=== PATIENT | female | born 1970 | race Caucasian/White ===

== ENCOUNTER 2020-09-28 05:45 | Inpatient (IN) ==
[2020-09-26 11:09] LABS: Bilirubin,Urine Negative (Negative); Blood, Urine Negative (Negative); Glucose,Urine (UA) Negative (Negative); Ketones,Urine Negative (Negative); Nitrite,Urine Negative (Negative); Protein,Urine Negative; RBC,Urine 1 /HPF (0-4); Urine Appearance CLEAR (Clear); Urine Color Straw (Yellow); Urine Specific Gravity 1.008 (1.001-1.035); Urine Urobilinogen < 2.0 EU/DL (0.2-1.0); WBC,Urine <1 /HPF (0-6)
[2020-09-26 11:13] LABS: Basophils # 0.1 10*3/uL (0.0-0.2); Basophils % 0.6 % (0.0-0.8); Eosinophils # 0.1 10*3/uL (0.0-0.87); Eosinophils % 0.5 % (0.00-10.9); Hematocrit 37.5 VOL% (35.7-47.0); Hemoglobin 12.8 GM/DL (12.0-16.0); Immature Granulocytes % 0.2 %; Immature Granulocytes Absolute 0.02 #; Lymphocytes # 2.9 10*3/uL (1.4-4.0); Lymphocytes % 31.7 % (21.3-54.2); Mean Corpuscular HGB Conc 34.1 GM/DL (32-36); Mean Corpuscular Volume 81.9 FL (87-102); Mean Platelet Volume 10.8 FL (9.6-12.0); Monocytes % 10.1 % (1.7-12.7); Neutrophils % 56.9 % (38.7-73.9); Platelet Count 518 T/CUMM (130-400); Red Blood Count 4.58 MC/CUMM (3.8-5.5); Red Cell Distribution Width 16.8 % (9.3-17.3); White Blood Count 9.3 T/CUMM (4-12)
[2020-09-26 11:20] LABS: PT Patient Result 10.9 SECS (9.8-11.9); Partial Thromboplastin Time 28.6 SECS (23.9-33.8)
[2020-09-26 11:24] LABS: Bilirubin,Total 0.5 MG/DL (0.2-1.0); Calcium 8.5 MG/DL (8.5-10.1); Osmolality,Calculated 277.5 MOS/KG (273-304); Potassium 4.2 MMOL/L (3.5-5.1); Total Protein 7.8 G/DL (6.4-8.3)
[2020-09-28] MEDS ORDERED: ceFAZolin 1,000 MG VIAL ONE (05:57)
[2020-09-28] MEDS ORDERED: VANCOMYCIN 1,000 MG VIAL ONE (05:57)
[2020-09-28] MEDS ORDERED: fentaNYL 100 MCG/2 ML VIAL ONE ×2 (06:26→08:35)
[2020-09-28] MEDS ORDERED: TRANEXAMIC ACID 1,000 MG/10 ML VIAL ONE (06:27)
[2020-09-28] MEDS ORDERED: MIDAZOLAM 2 MG/2 ML VIAL ONE (06:27)
[2020-09-28] MEDS ORDERED: ROPIVACAINE 0.5% 30 ML VIAL ONE (06:30)
[2020-09-28] MEDS ORDERED: DEXAMETHASONE 4 MG/1 ML VIAL ONE ×2 (06:30→07:50)
[2020-09-28] MEDS ORDERED: BACITRACIN OINT 0.9 GM PACK TOP ONE (06:44)
[2020-09-28] MEDS ORDERED: LIDOCAINE 2% 5 ML VIAL ONE (07:25)
[2020-09-28] MEDS ORDERED: ROCURONIUM 50 MG/5 ML VIAL IV ONE (07:25)
[2020-09-28] MEDS: LACTATED RINGERS 1,000 ML IV SCH ×4 (07:25→20:19)
[2020-09-28] MEDS ORDERED: propofoL 200 MG/20 ML VIAL IV ONE (07:25)
[2020-09-28] MEDS ORDERED: ePHEDrine 50 MG/ML VIAL ONE (07:36)
[2020-09-28] MEDS ORDERED: PHENYLEPHRINE 1 MG/10 ML SYRINGE IV ONE (07:49)
[2020-09-28] MEDS ORDERED: ONDANSETRON 4 MG/2 ML VIAL ONE (07:50)
[2020-09-28] MEDS ORDERED: PHENYLEPHRINE 10 MG/1 ML VIAL IV ONE (08:14)
[2020-09-28] MEDS ORDERED: SODIUM CHLORIDE 0.9% 250 ML IV ONE (08:16)
[2020-09-28] MEDS ORDERED: SODIUM CHLORIDE 0.9% 100 ML IV ONE (08:16)
[2020-09-28] MEDS ORDERED: GLYCOPYRROLATE 0.4 MG/2 ML VIAL ONE ×2 (08:46→08:55)
[2020-09-28] MEDS ORDERED: NEOSTIGMINE 10 MG/10 ML VIAL ONE (08:55)
[2020-09-28] MEDS ORDERED: MAGNESIUM HYDROXIDE SUSP 30 ML UDCUP PO PRN (09:16)
[2020-09-28] MEDS ORDERED: ZALEPLON 5 MG CAPSULE PO PRN (09:16)
[2020-09-28] MEDS ORDERED: MORPHINE 4 MG/1 ML VIAL IV PRN (09:16)
[2020-09-28] MEDS: HYDROmorphone 2 MG/1 ML VIAL IV PRN ×4 (09:35→09:50)
[2020-09-28] MEDS ORDERED: HYDROmorphone 2 MG/1 ML VIAL ONE (09:37)
[2020-09-28] MEDS ORDERED: SEVOFLURANE 1 UNIT/15 MINUTE INH ONE (09:37)
[2020-09-28] MEDS ORDERED: MEPERIDINE 25 MG/1 ML VIAL IV PRN (09:49)
[2020-09-28] MEDS ORDERED: ONDANSETRON 4 MG/2 ML VIAL IV PRN (09:49)
[2020-09-28 10:08] LABS: Bilirubin,Urine Negative (Negative); Blood, Urine Negative (Negative); Glucose,Urine (UA) Negative (Negative); Ketones,Urine Trace mg/dL (Negative); Nitrite,Urine Negative (Negative); Protein,Urine 1+ MG/DL; Urine Appearance Clear (Clear); Urine Color Yellow (Yellow); Urine Urobilinogen < 2.0 EU/DL (0.2-1.0)
[2020-09-28 10:09] LABS: Bacteria,Urine 1+ /HPF (Few); RBC,Urine Rare /HPF (0-4); Transitional Epi Cells,Urine Rare /HPF (<1); WBC,Urine Rare /HPF (0-6)
[2020-09-28] MEDS ORDERED: MEPERIDINE 25 MG/1 ML VIAL ONE (10:14)
[2020-09-28] MEDS: diphenhydrAMINE CAP 25 MG CAPSULE PO PRN (10:59)
[2020-09-28] MEDS: MORPHINE 4 MG/1 ML VIAL IV PRN ×4 (12:00→23:14)
[2020-09-28] MEDS: ceFAZolin 2,000 MG in PREMIX 1 EACH IV SCH ×2 (14:59→21:06)
[2020-09-28] MEDS: GABAPENTIN 300 MG CAPSULE PO SCH ×2 (15:01→20:19)
[2020-09-28] MEDS ORDERED: VANCOMYCIN INJ 1,000 MG in SODIUM CHLORIDE 0.9% 250 ML IV ONE (17:17)
[2020-09-28] MEDS: APIXABAN 2.5 MG TABLET PO SCH (20:19)
[2020-09-28] MEDS: DOCUSATE SODIUM 100 MG CAPSULE PO SCH (20:19)
[2020-09-29] MEDS: MORPHINE 4 MG/1 ML VIAL IV PRN ×3 (03:22→21:17)
[2020-09-29] MEDS: LACTATED RINGERS 1,000 ML IV SCH (04:20)
[2020-09-29 05:55] LABS: Basophils % 0.3 % (0.0-0.8); Eosinophils % 0.1 % (0.00-10.9); Hematocrit 28.7 VOL% (35.7-47.0); Hemoglobin 9.6 GM/DL (12.0-16.0); Immature Granulocytes % 0.3 %; Immature Granulocytes Absolute 0.05 #; Lymphocytes # 5.7 10*3/uL (1.4-4.0); Mean Corpuscular HGB Conc 33.4 GM/DL (32-36); Mean Corpuscular Volume 81.3 FL (87-102); Mean Platelet Volume 11.4 FL (9.6-12.0); Monocytes % 14.6 % (1.7-12.7); Neutrophils % 48.7 % (38.7-73.9); Platelet Count 387 T/CUMM (130-400); Red Blood Count 3.53 MC/CUMM (3.8-5.5); Red Cell Distribution Width 16.3 % (9.3-17.3); White Blood Count 15.8 T/CUMM (4-12)
[2020-09-29 06:22] LABS: Calcium 7.8 MG/DL (8.5-10.1); Osmolality,Calculated 276.4 MOS/KG (273-304); Potassium 3.3 MMOL/L (3.5-5.1)
[2020-09-29] MEDS: POTASSIUM CHLORIDE 20 MEQ TABLET PO SCH ×2 (08:29→20:06)
[2020-09-29] MEDS: NICOTINE 21 MG/24 HR PATCH TRANSDERM SCH (08:29)
[2020-09-29] MEDS: amLODIPine 10 MG TABLET PO SCH (08:29)
[2020-09-29] MEDS: DOCUSATE SODIUM 100 MG CAPSULE PO SCH ×2 (08:29→20:06)
[2020-09-29] MEDS: GABAPENTIN 300 MG CAPSULE PO SCH ×3 (08:30→20:06)
[2020-09-29] MEDS: APIXABAN 2.5 MG TABLET PO SCH ×2 (08:30→20:06)
[2020-09-29] MEDS: ONDANSETRON 4 MG/2 ML VIAL IV PRN (09:54)
[2020-09-29] MEDS ORDERED: ACETAMINOPHEN/CODEINE 300-30 MG TABLET PO PRN ×2 (11:54)
[2020-09-29] MEDS: diphenhydrAMINE CAP 25 MG CAPSULE PO PRN (13:10)
[2020-09-30] MEDS: diphenhydrAMINE CAP 25 MG CAPSULE PO PRN (00:30)
[2020-09-30] MEDS: ONDANSETRON 4 MG/2 ML VIAL IV PRN ×2 (00:30→08:59)
[2020-09-30 05:22] LABS: Basophils # 0.1 10*3/uL (0.0-0.2); Basophils % 0.4 % (0.0-0.8); Eosinophils # 0.1 10*3/uL (0.0-0.87); Eosinophils % 0.3 % (0.00-10.9); Hematocrit 31.3 VOL% (35.7-47.0); Hemoglobin 10.6 GM/DL (12.0-16.0); Immature Granulocytes % 0.4 %; Immature Granulocytes Absolute 0.07 #; Lymphocytes # 4.9 10*3/uL (1.4-4.0); Lymphocytes % 29.6 % (21.3-54.2); Mean Corpuscular HGB Conc 33.9 GM/DL (32-36); Mean Corpuscular Volume 82.8 FL (87-102); Mean Platelet Volume 11.3 FL (9.6-12.0); Monocytes % 17.6 % (1.7-12.7); Neutrophils % 51.7 % (38.7-73.9); Platelet Count 363 T/CUMM (130-400); Red Blood Count 3.78 MC/CUMM (3.8-5.5); Red Cell Distribution Width 16.4 % (9.3-17.3); White Blood Count 16.6 T/CUMM (4-12)
[2020-09-30] MEDS: MORPHINE 4 MG/1 ML VIAL IV PRN ×2 (05:36→10:56)
[2020-09-30 05:41] LABS: Calcium 8.5 MG/DL (8.5-10.1); Osmolality,Calculated 270.8 MOS/KG (273-304)
[2020-09-30 05:56] LABS: Band Neutrophils 2 % (0-10); Eosinophils 1 % (0-10); Lymphocytes 30 % (20-55); Segmented Neutrophils 50 % (50-85); Total Cells Counted 100
[2020-09-30 05:57] LABS: Anisocytosis 1+; Platelet Estimate Normal; Poikilocytosis Slight; Target Cells 1+
[2020-09-30 05:58] LABS: Atypical Lymphocytes Few; Burr Cells Few; Hypochromasia Slight
[2020-09-30] MEDS ORDERED: oxyCODONE/ACETAMINOPHEN 5-325 MG TABLET PO PRN ×2 (07:27)
[2020-09-30] MEDS: DOCUSATE SODIUM 100 MG CAPSULE PO SCH (08:56)
[2020-09-30] MEDS: POTASSIUM CHLORIDE 20 MEQ TABLET PO SCH (08:56)
[2020-09-30] MEDS: amLODIPine 10 MG TABLET PO SCH (08:57)
[2020-09-30] MEDS: APIXABAN 2.5 MG TABLET PO SCH (08:57)
[2020-09-30] MEDS: GABAPENTIN 300 MG CAPSULE PO SCH (08:57)
[2020-09-30] MEDS: NICOTINE 21 MG/24 HR PATCH TRANSDERM SCH (08:58)
[2020-09-30 11:22] VITALS: BP 102/55
== END 2020-09-30 13:53 | disposition home health service (06) | DRG 467 ==
LOC: N.OR 05:45 → N.SDSINP 05:46 → N.3E 10:26
PROVIDERS: ADMIT Orthopaedic Surgery; ATTEND Orthopaedic Surgery

== ENCOUNTER 2022-09-27 05:42 | Inpatient (IN) ==
[2022-09-20 11:34] LABS: Basophils # 0.1 10*3/uL (0.0-0.2); Basophils % 0.7 % (0.0-0.8); Eosinophils # 0.1 10*3/uL (0.0-0.87); Eosinophils % 1.7 % (0.00-10.9); Hematocrit 35.5 VOL% (35.7-47.0); Hemoglobin 11.8 GM/DL (12.0-16.0); Immature Granulocytes % 0.4 %; Immature Granulocytes Absolute 0.03 #; Lymphocytes # 3.2 10*3/uL (1.4-4.0); Mean Corpuscular HGB Conc 33.2 GM/DL (32-36); Mean Corpuscular Volume 88.3 FL (87-102); Mean Platelet Volume 10.3 FL (9.6-12.0); Monocytes # 0.9 10*3/uL (0.11-0.8); Monocytes % 10.8 % (1.7-12.7); Neutrophils % 46.4 % (38.7-73.9); Platelet Count 570 T/CUMM (130-400); Red Blood Count 4.02 MC/CUMM (3.8-5.5); Red Cell Distribution Width 15.9 % (9.3-17.3)
[2022-09-20 11:50] LABS: PT Patient Result 10.6 SECS (10.1-12.1); Partial Thromboplastin Time 26.7 SECS (23.7-32.9)
[2022-09-20 11:56] LABS: Bilirubin,Urine Negative (Negative); Blood, Urine Negative (Negative); Glucose,Urine (UA) Negative (Negative); Ketones,Urine Negative (Negative); Nitrite,Urine Negative (Negative); Protein,Urine Negative (Negative); Urine Appearance Clear (Clear); Urine Color Yellow (Yellow); Urine Urobilinogen 0.2 eU/dL (<2.0); Urine pH 6.5 (4.5-8.0)
[2022-09-20 11:57] LABS: RBC,Urine <1 /HPF (0-4); Squamous Epithelial Cell,Urine Occasional /HPF (0-10)
[2022-09-20 12:33] LABS: Alanine Aminotransferase 21 U/L (13-56); Albumin 3.6 G/DL (3.4-5.0); Alkaline Phosphatase 82 U/L (45-117); Aspartate Amino Transferase 25 U/L (0-37); Bilirubin,Total < 0.39 MG/DL (0.20-1.00); Blood Urea Nitrogen 12 MG/DL (7-18); Calcium 8.9 MG/DL (8.5-10.1); Carbon Dioxide 21 MMOL/L (21-32); Chloride 108 MMOL/L (98-107); Glucose 87 MG/DL (74-106); Osmolality,Calculated 273.7 MOS/KG (273-304); Potassium 4.1 MMOL/L (3.5-5.1); Sodium 138 MMOL/L (136-145); Total Protein 7.4 G/DL (6.4-8.2)
[2022-09-27] MEDS ORDERED: fentaNYL 100 MCG/2 ML VIAL ONE ×2 (05:50→07:09)
[2022-09-27] MEDS ORDERED: MIDAZOLAM 2 MG/2 ML VIAL ONE ×2 (05:50→07:08)
[2022-09-27] MEDS ORDERED: LIDOCAINE 2% 5 ML VIAL ONE (05:50)
[2022-09-27] MEDS ORDERED: propofoL 200 MG/20 ML VIAL IV ONE (05:50)
[2022-09-27] MEDS ORDERED: FAMOTIDINE 20 MG/2 ML VIAL IV ONE (06:21)
[2022-09-27] MEDS ORDERED: DEXAMETHASONE 4 MG/1 ML VIAL ONE (06:24)
[2022-09-27] MEDS ORDERED: ROPIVACAINE 0.5% 30 ML VIAL ONE ×2 (06:25)
[2022-09-27] MEDS ORDERED: LIDOCAINE 1% 5 ML VIAL ONE (06:25)
[2022-09-27] MEDS ORDERED: LACTATED RINGERS 1,000 ML IV SCH (06:30)
[2022-09-27] MEDS ORDERED: VANCOMYCIN INJ 1,000 MG in SODIUM CHLORIDE 0.9% 250 ML IV ONE ×2 (06:30→18:00)
[2022-09-27] MEDS ORDERED: buprenorphine HCL 0.3 MG/ML VIAL ONE (06:34)
[2022-09-27] MEDS ORDERED: ePHEDrine 50 MG/ML VIAL ONE (07:26)
[2022-09-27] MEDS ORDERED: SUCCINYLCHOLINE 200 MG/10 ML VIAL ONE (07:59)
[2022-09-27] MEDS ORDERED: ROCURONIUM 50 MG/5 ML VIAL IV ONE (07:59)
[2022-09-27] MEDS ORDERED: SEVOFLURANE 1 UNIT/15 MINUTE INH ONE (07:59)
[2022-09-27] MEDS ORDERED: ACETAMINOPHEN INJ 1,000 MG/100 ML VIAL IV ONE (07:59)
[2022-09-27] MEDS ORDERED: TRANEXAMIC ACID 1,000 MG/10 ML VIAL ONE (08:04)
[2022-09-27] MEDS ORDERED: GLYCOPYRROLATE 0.4 MG/2 ML VIAL ONE (09:10)
[2022-09-27] MEDS ORDERED: NEOSTIGMINE 10 MG/10 ML VIAL ONE (09:10)
[2022-09-27] MEDS ORDERED: MAGNESIUM HYDROXIDE SUSP 30 ML UDCUP PO PRN (09:34)
[2022-09-27] MEDS ORDERED: MORPHINE 2 MG/1 ML SYRINGE IV PRN (09:34)
[2022-09-27] MEDS ORDERED: diphenhydrAMINE CAP 25 MG CAPSULE PO PRN (09:34)
[2022-09-27] MEDS ORDERED: ZALEPLON 5 MG CAPSULE PO PRN (09:34)
[2022-09-27] MEDS: ONDANSETRON 4 MG/2 ML VIAL IV PRN ×2 (10:04→19:39)
[2022-09-27] MEDS ORDERED: PROMETHAZINE 25 MG/1 ML VIAL ONE (10:13)
[2022-09-27] MEDS ORDERED: PROMETHAZINE INJ 25 MG in SODIUM CHLORIDE 0.9% 50 ML IV ONE (10:16)
[2022-09-27 10:26] LABS: Glucose,Urine (UA) Negative (Negative); Mucus,Urine Occasional /LPF (Occasional); Protein,Urine Negative (Negative); RBC,Urine <1 /HPF (0-4); Urine Appearance Clear (Clear); Urine Color Yellow (Yellow); Urine pH 6.5 (4.5-8.0)
[2022-09-27 10:27] LABS: Bilirubin,Urine Negative (Negative); Blood, Urine Negative (Negative); Ketones,Urine Negative (Negative); Nitrite,Urine Negative (Negative)
[2022-09-27] MEDS ORDERED: AMISULPRIDE 10 MG/4 ML VIAL IV ONE ×2 (10:30→10:36)
[2022-09-27] MEDS: LACTATED RINGERS 1,000 ML IV SCH ×2 (11:15→21:20)
[2022-09-27] MEDS: GABAPENTIN 600 MG TABLET PO SCH ×2 (14:16→21:17)
[2022-09-27] MEDS: MORPHINE 2 MG/1 ML SYRINGE IV PRN ×2 (15:26→19:40)
[2022-09-27] MEDS: DOCUSATE SODIUM 100 MG CAPSULE PO SCH (21:17)
[2022-09-28 05:26] LABS: Basophils % 0.3 % (0.0-0.8); Eosinophils % 0.1 % (0.00-10.9); Hematocrit 27.4 VOL% (35.7-47.0); Immature Granulocytes % 0.3 %; Immature Granulocytes Absolute 0.04 #; Lymphocytes # 4.8 10*3/uL (1.4-4.0); Lymphocytes % 40.4 % (21.3-54.2); Mean Corpuscular HGB Conc 32.8 GM/DL (32-36); Mean Platelet Volume 11.1 FL (9.6-12.0); Monocytes # 1.6 10*3/uL (0.11-0.8); Monocytes % 13.6 % (1.7-12.7); Neutrophils % 45.3 % (38.7-73.9); Platelet Count 514 T/CUMM (130-400); Red Blood Count 3.15 MC/CUMM (3.8-5.5); Red Cell Distribution Width 15.9 % (9.3-17.3); White Blood Count 11.9 T/CUMM (4-12)
[2022-09-28 05:36] LABS: Calcium 8.3 MG/DL (8.5-10.1); Osmolality,Calculated 282.8 MOS/KG (273-304); Potassium 3.4 MMOL/L (3.5-5.1)
[2022-09-28] MEDS: LACTATED RINGERS 1,000 ML IV SCH (06:02)
[2022-09-28 06:48] LABS: Anisocytosis Slight; Platelet Estimate Increased; Target Cells Few
[2022-09-28 06:49] LABS: Burr Cells Few; Ovalocytes Few
[2022-09-28] MEDS ORDERED: POTASSIUM CHLORIDE 20 MEQ TABLET PO ONE (07:52)
[2022-09-28] MEDS: GABAPENTIN 600 MG TABLET PO SCH ×3 (08:36→20:18)
[2022-09-28] MEDS: DOCUSATE SODIUM 100 MG CAPSULE PO SCH ×2 (08:36→20:18)
[2022-09-28] MEDS: amLODIPine 10 MG TABLET PO SCH (08:36)
[2022-09-28] MEDS: ONDANSETRON 4 MG/2 ML VIAL IV PRN ×2 (12:15→20:23)
[2022-09-28] MEDS: FONDAPARINUX 2.5 MG/0.5 ML SYRINGE SUBCUT SCH (13:53)
[2022-09-28] MEDS ORDERED: ACETAMINOPHEN 325 MG TABLET PO PRN (15:16)
[2022-09-28] MEDS: PROMETHAZINE INJ 25 MG in SODIUM CHLORIDE 0.9% 50 ML IV PRN (22:42)
[2022-09-28 23:21] LABS: Basophils # 0.1 10*3/uL (0.0-0.2); Basophils % 0.5 % (0.0-0.8); Eosinophils # 0.1 10*3/uL (0.0-0.87); Eosinophils % 0.7 % (0.00-10.9); Hematocrit 30.6 VOL% (35.7-47.0); Hemoglobin 10.2 GM/DL (12.0-16.0); Immature Granulocytes % 0.6 %; Immature Granulocytes Absolute 0.08 #; Lymphocytes # 3.6 10*3/uL (1.4-4.0); Lymphocytes % 25.9 % (21.3-54.2); Mean Corpuscular HGB Conc 33.3 GM/DL (32-36); Mean Corpuscular Volume 85.7 FL (87-102); Mean Platelet Volume 10.6 FL (9.6-12.0); Monocytes # 2.4 10*3/uL (0.11-0.8); Monocytes % 17.1 % (1.7-12.7); Neutrophils % 55.2 % (38.7-73.9); Platelet Count 536 T/CUMM (130-400); Red Blood Count 3.57 MC/CUMM (3.8-5.5); Red Cell Distribution Width 15.6 % (9.3-17.3); White Blood Count 13.7 T/CUMM (4-12)
[2022-09-28 23:42] LABS: Eosinophils 3 % (0-10); Lymphocytes 23 % (20-55); Platelet Estimate Increased; Total Cells Counted 100
[2022-09-29] MEDS: ONDANSETRON 4 MG/2 ML VIAL IV PRN ×4 (03:48→21:12)
[2022-09-29 05:06] LABS: Basophils # 0.1 10*3/uL (0.0-0.2); Basophils % 0.6 % (0.0-0.8); Eosinophils # 0.1 10*3/uL (0.0-0.87); Eosinophils % 0.4 % (0.00-10.9); Hematocrit 31.9 VOL% (35.7-47.0); Hemoglobin 10.8 GM/DL (12.0-16.0); Immature Granulocytes % 0.6 %; Lymphocytes # 3.3 10*3/uL (1.4-4.0); Lymphocytes % 20.3 % (21.3-54.2); Mean Corpuscular HGB Conc 33.9 GM/DL (32-36); Mean Corpuscular Volume 85.5 FL (87-102); Mean Platelet Volume 10.3 FL (9.6-12.0); Monocytes # 2.7 10*3/uL (0.11-0.8); Monocytes % 16.7 % (1.7-12.7); Neutrophils % 61.4 % (38.7-73.9); Platelet Count 560 T/CUMM (130-400); Red Blood Count 3.73 MC/CUMM (3.8-5.5); Red Cell Distribution Width 15.5 % (9.3-17.3)
[2022-09-29] MEDS: PROMETHAZINE INJ 25 MG in SODIUM CHLORIDE 0.9% 50 ML IV PRN (05:15)
[2022-09-29 05:45] LABS: % Iron Saturation 3.6 % (18-50); Calcium 8.9 MG/DL (8.5-10.1); Ferritin 288.6 ng/mL (8-252); Osmolality,Calculated 271.8 MOS/KG (273-304); Potassium 3.9 MMOL/L (3.5-5.1)
[2022-09-29 06:06] LABS: Eosinophils 5 % (0-10); Hypochromia Slight; Lymphocytes 20 % (20-55); Microcytosis Slight; Platelet Estimate Increased; Total Cells Counted 100
[2022-09-29 07:39] LABS: Bacteria,Urine Occasional /HPF (Few); Hyaline Casts,Urine 1 /LPF (0-3); Mucus,Urine Occasional /LPF (Occasional); Squamous Epithelial Cell,Urine Occasional /HPF (0-10); Urine Appearance Clear (Clear); Urine Color Yellow (Yellow); Urine pH 6.5 (4.5-8.0)
[2022-09-29 07:40] LABS: Bilirubin,Urine Negative (Negative); Blood, Urine Negative (Negative); Glucose,Urine (UA) Negative (Negative); Ketones,Urine Trace mg/dL (Negative); Nitrite,Urine Negative (Negative); Protein,Urine Negative (Negative)
[2022-09-29] MEDS ORDERED: MAGNESIUM SULF RIDER 2 GM/50 ML PREMIX IV ONE (07:42)
[2022-09-29] MEDS ORDERED: LACTATED RINGERS 1,000 ML IV ONE (08:17)
[2022-09-29] MEDS: amLODIPine 10 MG TABLET PO SCH (08:19)
[2022-09-29] MEDS: FONDAPARINUX 2.5 MG/0.5 ML SYRINGE SUBCUT SCH (11:00)
[2022-09-29] MEDS: GABAPENTIN 600 MG TABLET PO SCH ×3 (11:00→20:06)
[2022-09-29] MEDS: DOCUSATE SODIUM 100 MG CAPSULE PO SCH ×2 (11:00→20:07)
[2022-09-29] MEDS: FERROUS SULFATE 325 MG TABLET PO SCH ×2 (11:00→20:06)
[2022-09-29] MEDS: LACTATED RINGERS 1,000 ML IV SCH (11:41)
[2022-09-29] MEDS: PIPERACILLIN/TAZOBACTAM 3,375 MG in SODIUM CHLORIDE 0.9% 100 ML IV SCH ×2 (12:31→18:43)
[2022-09-29] MEDS: VANCOMYCIN INJ 1,000 MG in SODIUM CHLORIDE 0.9% 250 ML IV SCH (15:50)
[2022-09-30] MEDS: PIPERACILLIN/TAZOBACTAM 3,375 MG in SODIUM CHLORIDE 0.9% 100 ML IV SCH ×2 (02:46→10:34)
[2022-09-30] MEDS: VANCOMYCIN INJ 1,000 MG in SODIUM CHLORIDE 0.9% 250 ML IV SCH (02:47)
[2022-09-30] MEDS: LACTATED RINGERS 1,000 ML IV SCH ×2 (02:48→09:40)
[2022-09-30 05:57] LABS: Basophils # 0.1 10*3/uL (0.0-0.2); Basophils % 0.7 % (0.0-0.8); Eosinophils # 0.3 10*3/uL (0.0-0.87); Hemoglobin 9.5 GM/DL (12.0-16.0); Immature Granulocytes % 0.5 %; Immature Granulocytes Absolute 0.06 #; Lymphocytes # 3.6 10*3/uL (1.4-4.0); Lymphocytes % 32.3 % (21.3-54.2); Mean Corpuscular HGB Conc 32.8 GM/DL (32-36); Mean Corpuscular Volume 89.2 FL (87-102); Mean Platelet Volume 10.4 FL (9.6-12.0); Monocytes % 17.6 % (1.7-12.7); Neutrophils % 45.9 % (38.7-73.9); Platelet Count 523 T/CUMM (130-400); Red Blood Count 3.25 MC/CUMM (3.8-5.5); Red Cell Distribution Width 15.7 % (9.3-17.3); White Blood Count 11.21 T/CUMM (4-12)
[2022-09-30 06:22] LABS: Calcium 7.9 MG/DL (8.5-10.1); Osmolality,Calculated 278.3 MOS/KG (273-304); Potassium 3.7 MMOL/L (3.5-5.1)
[2022-09-30 06:25] LABS: Eosinophils 7 % (0-10); Lymphocytes 34 % (20-55); Total Cells Counted 100
[2022-09-30 06:26] LABS: Hypochromia Slight; Platelet Estimate Increased
[2022-09-30 08:48] VITALS: BP 97/58
[2022-09-30] MEDS: amLODIPine 10 MG TABLET PO SCH (08:55)
[2022-09-30] MEDS: ONDANSETRON 4 MG/2 ML VIAL IV PRN (09:03)
[2022-09-30] MEDS: DOCUSATE SODIUM 100 MG CAPSULE PO SCH (09:03)
[2022-09-30] MEDS: GABAPENTIN 600 MG TABLET PO SCH (09:03)
[2022-09-30] MEDS: FONDAPARINUX 2.5 MG/0.5 ML SYRINGE SUBCUT SCH (09:03)
[2022-09-30] MEDS: FERROUS SULFATE 325 MG TABLET PO SCH (09:03)
== END 2022-09-30 10:26 | disposition home health service (06) | DRG 467 ==
LOC: N.OR 05:42 → N.SDSINP 05:42 → N.3E 09:13
PROVIDERS: ADMIT Orthopaedic Surgery; ATTEND Orthopaedic Surgery